=== PATIENT | female | born 1975 | race American Indian/Alaskan Native ===

== ENCOUNTER 2017-04-26 03:12 | Emergency (ER) | payer SELFPAY ==
[2017-04-26 03:28] VITALS: BP 114/70
[2017-04-26 04:16] LABS: Eosinophils % (Auto) 2.3 % (0.0-4.3); Hematocrit 36.2 % (30.3-42.9); Mean Corpuscular HGB Conc 33 % (30-34); Mean Corpuscular Hemoglobin 29 pg (28-32); Mean Corpuscular Volume 89 fl (79-97); Platelet Count 348 K/mm3 (140-440); Red Blood Count 4.08 M/mm3 (3.65-5.03); Red Cell Distribution Width 13.6 % (13.2-15.2); White Blood Count 7.5 K/mm3 (4.5-11.0)
[2017-04-26 04:29] LABS: Alanine Aminotransferase 10 units/L (7-56); Albumin/Globulin Ratio 1.5 %; Alkaline Phosphatase 73 units/L (35-129); Anion Gap 12 mmol/L; BUN/Creatinine Ratio 14.28; Blood Urea Nitrogen 10 mg/dL (7-17); Calcium 8.8 mg/dL (8.4-10.2); Carbon Dioxide 32 mmol/L (22-30); Chloride 99.1 mmol/L (98-107); Glucose 98 mg/dL (65-100); Lipase 20 units/L (13-60); Potassium 3.7 mmol/L (3.6-5.0); Sodium 139 mmol/L (137-145); Total Protein 6.7 g/dL (6.3-8.2)
--- NOTE | 2017-04-27 14:08 | ED Elopement Review ---
ED Pt Elopement review - Results review Lab results: Laboratory Tests 04/26/17 04/26/17 03:48 03:48 WBC 7.5 RBC 4.08 Hgb 12.0 Hct 36.2 MCV 89 MCH 29 MCHC 33 RDW 13.6 Plt Count 348 Lymph % (Auto) 37.7 H [place] % (Auto) 5.1 Eos % (Auto) 2.3 Baso % (Auto) 1.0 Lymph # 2.8 [place] # 0.4 Eos # 0.2 Baso # 0.1 Seg Neutrophils % 53.9 Seg Neutrophils # 4.0 Sodium 139 Potassium 3.7 Chloride 99.1 Carbon Dioxide 32 H Anion Gap 12 BUN 10 Creatinine 0.7 Estimated GFR > 60 BUN/Creatinine Ratio 14.28 Glucose 98 Calcium 8.8 Total Bilirubin 0.20 AST 12 ALT 10 Alkaline Phosphatase 73 Total Protein 6.7 Albumin 4.0 Albumin/Globulin Ratio 1.5 Lipase 20 - Call Back decision Pt Call Back Decision: No action required
== END 2017-04-26 04:35 | disposition left against medical advice (07) ==
LOC: ED 03:12
DX: R10.10 Upper abdominal pain, unspecified (principal); Z53.21 Procedure and treatment not carried out due to patient leaving prior to being seen by health care provider
CPT/HCPCS: 36415; 80053; 83690; 85025